=== PATIENT | male | born 1975 | race Hispanic/Latino ===

== ENCOUNTER 2022-06-22 17:56 | Emergency (ER) | payer BC ==
[~2022-06-22] VITALS: Ht 185.4 cm; Wt 102.1 kg
[2022-06-22] MEDS ORDERED: XANAX0.5 MG PO (19:20)
== END 2022-06-22 19:29 | disposition home or self-care (01) ==
LOC: FSED 18:25
DX: R53.1 Weakness (principal); F10.10 Alcohol abuse, uncomplicated
CPT/HCPCS: 80048; 80307; 81003; 82553; 83880; 84484; 99283